=== PATIENT | male | born 2000 | race Caucasian/White ===

== ENCOUNTER 2023-12-29 22:30 | Emergency (ER) | payer OTHER ==
[~2023-12-29] VITALS: Ht 157.5 cm; Wt 46.7 kg
[2023-12-29 22:40] VITALS: BP 107/72; PULSE 110; RESP 16; TEMP 97.6; O2SAT 98
[2023-12-29] MEDS: NACL 0.9% 1,000 ML IV ONE (23:16)
[2023-12-29] MEDS: ONDANSETRON 4 MG/2 ML VIAL IVP ONE (23:17)
[2023-12-29 23:52] VITALS: O2SAT 98
[2023-12-30] MEDS ORDERED: ONDA8TAB87 PO (00:01)
[2023-12-30] MEDS ORDERED: LOPE-289 PO (00:01)
[2023-12-30] MEDS ORDERED: IBUP-2213 PO (00:01)
[2023-12-30 00:21] VITALS: BP 107/72; PULSE 110; RESP 16; TEMP 97.6; O2SAT 98
== END 2023-12-29 23:04 | disposition home or self-care (01) ==
LOC: MED 22:30
DX: R11.2 Nausea with vomiting, unspecified (principal); R19.7 Diarrhea, unspecified; R10.13 Epigastric pain; R42 Dizziness and giddiness; Z88.0 Allergy status to penicillin
CPT/HCPCS: 96361; 96374; 99283; J2405; J7030